=== PATIENT | male | born 1965 | race Caucasian/White ===

== ENCOUNTER 2017-09-13 09:20 | Emergency (ER) | payer OTHER ==
[~2017-09-13] VITALS: Ht 162.6 cm; Wt 95.0 kg
[2017-09-13 09:20] VITALS: BP 156/111; PULSE 67; RESP 18; TEMP 98.1; O2SAT 94
[2017-09-13 09:34] VITALS: BP 156/111; PULSE 69; RESP 18; O2SAT 98
--- NOTE | 2017-09-13 09:41 | PD ---
HPI Chief Complaint: Neuro Symptoms/ Deficits Time Seen by Provider: 09:23 Travel History International Travel<30 days: No Contact w/Intl Traveler<30days: No Traveled to known affect area: No History of Present Illness HPI This 52-year-old male says he noted some irritation of his right eye yesterday. He thought it might be something in the eye and it was tearing a lot. He slept okay last night and he woke up this morning and when he got up he noticed that when he tried to gargle the mouthwash would not stay in his mouth that came out the right side of his mouth. He then went to work but noticed some drooping of the right side of his face. He has not had any earache or headache. He has not had fever or chills. He has not had symptoms like this before. He did not notice any weakness of his arm or his legs. He lives locally and has not traveled. It was noted that his blood pressure was elevated. He has not had high blood pressure before but he has had a recent gain in weight. [facility] Past Medical History Medical History: Denies Significant Hx Past Surgical History AICD: No Joint Replacement: No Pacemaker: No Other Surgery: Yes (HERNIA SURGERY) Social History Alcohol Use: No Tobacco Use: No Substance Use: No Allergies-Medications (Allergen,Severity, Reaction): Coded Allergies: No Known Allergies (Unverified Adverse Reaction, Unknown, 09/13/17) Reported Meds & Prescriptions Reported Meds & Active Scripts Active No Active Prescriptions or Reported Medications Review of Systems General / Constitutional: No: Fever, Chills Eyes: Positive: Foreign Body Sensation, Tearing HENT: No: Headaches, Vertigo, Neck Pain Cardiovascular: No: Chest Pain or Discomfort, Palpitations Respiratory: No: Cough, Shortness of Breath Gastrointestinal: No: Vomiting, Diarrhea Genitourinary: No: Urgency, Frequency Neurologic: Positive: Focal Abnormalities, No: Weakness, Syncope Endocrine: No: Cold Intolerance Hematologic/Lymphatic: No: Easy Bruising Physical Exam Narrative GENERAL: Well-developed male SKIN: Focused skin assessment warm/dry. HEAD: Atraumatic. Normocephalic. EYES: Pupils equal and round. No scleral icterus. No injection or drainage. ENT: No nasal bleeding or discharge. Mucous membranes pink and moist. NECK: Trachea midline. No JVD. CARDIOVASCULAR: Regular rate and rhythm. No murmur appreciated. RESPIRATORY: No accessory muscle use. Clear to auscultation. Breath sounds equal bilaterally. GASTROINTESTINAL: Abdomen soft, non-tender, nondistended. Hepatic and splenic margins not palpable. MUSCULOSKELETAL: No obvious deformities. No clubbing. No cyanosis. No edema. NEUROLOGICAL: Awake and alert. Motor grossly within normal limits. Normal speech. There is drooping of the right side of the face including the forehead. Sensation is intact. He has weakness on attempted closure of his eyes on the right. There is flattening of the right nasolabial fold PSYCHIATRIC: Appropriate mood and affect; insight and judgment normal. Data Data Last Documented VS Vital Signs Date Time Temp Pulse Resp B/P (MAP) Pulse Ox O2 Delivery O2 Flow Rate FiO2 09/13/17 10:52 74 16 120/78 (92) 97 09/13/17 09:48 Room Air 09/13/17 09:20 98.1 Orders Orders Complete Blood Count With Diff (09/13/17 09:31) Basic Metabolic Panel (Bmp) (09/13/17 09:31) Mri Brain W&W/O Contrast (09/13/17 09:32) Gadodiamide Pf Inj (Omniscan Pf Inj) (09/13/17 11:15) Labs Laboratory Tests Test 09/13/17 09:25 White Blood Count 8.6 TH/MM3 Red Blood Count 5.50 MIL/MM3 Hemoglobin 16.2 GM/DL Hematocrit 48.1 % Mean Corpuscular Volume 87.5 FL Mean Corpuscular Hemoglobin 29.4 PG Mean Corpuscular Hemoglobin Concent 33.6 % Red Cell Distribution Width 13.0 % Platelet Count 236 TH/MM3 Mean Platelet Volume 9.7 FL Neutrophils (%) (Auto) 59.7 % Lymphocytes (%) (Auto) 24.7 % Monocytes (%) (Auto) 10.6 % Eosinophils (%) (Auto) 3.6 % Basophils (%) (Auto) 1.4 % Neutrophils # (Auto) 5.2 TH/MM3 Lymphocytes # (Auto) 2.1 TH/MM3 Monocytes # (Auto) 0.9 TH/MM3 Eosinophils # (Auto) 0.3 TH/MM3 Basophils # (Auto) 0.1 TH/MM3 CBC Comment DIFF FINAL Differential Comment Blood Urea Nitrogen 20 MG/DL Creatinine 0.95 MG/DL Random Glucose 114 MG/DL Calcium Level 8.6 MG/DL Sodium Level 140 MEQ/L Potassium Level 4.2 MEQ/L Chloride Level 105 MEQ/L Carbon Dioxide Level 28.0 MEQ/L Anion Gap 7 MEQ/L Estimat Glomerular Filtration Rate 84 ML/MIN [facility] Medical Decision Making Medical Screen Exam Complete: Yes Emergency Medical Condition: Yes Medical Record Reviewed: Yes Differential Diagnosis Differential includes Fonseca's palsy, CVA Narrative Course Laboratory work is unremarkable. An MRI was obtained and is negative for mass lesion or stroke. Diagnosis is Fonseca's palsy. He'll be placed on prednisone. Diagnosis Primary Impression: Fonseca's palsy Scripts Prednisone (Prednisone) 20 Mg Tab 20 MG PO DIRECTED, #24 TAB 0 Refills Take 60 MG daily x 4 days, then 40 MG x 4 days, then 20 MG daily x 4 days. Prov: Amrik Andres MD 09/13/17 Disposition: DISCHARGE HOME Condition: Stable Amrik Andres MD Sep 13, 2017 09:41
[2017-09-13 09:46] LABS: AUTOMATED NEUTROPHIL # 5.2 TH/MM3 (1.8-7.7); BASOPHIL # 0.1 TH/MM3 (0-0.2); BASOPHIL % 1.4 % (0.0-2.0); EOSINOPHIL # 0.3 TH/MM3 (0-0.4); EOSINOPHIL % 3.6 % (0.0-4.0); HEMATOCRIT 48.1 % (39.0-51.0); HEMO FLAGS DIFF FINAL; LYMPH % 24.7 % (9.0-44.0); LYMPHOCYTE # 2.1 TH/MM3 (1.0-4.8); MEAN CELL VOLUME 87.5 FL (80.0-100.0); MEAN CORPUSCULAR HEMOGLOBIN 29.4 PG (27.0-34.0); MEAN CORPUSCULAR HGB CONC 33.6 % (32.0-36.0); MONO % 10.6 % (0.0-8.0); NEUT % 59.7 % (16.0-70.0); PLATELET COUNT 236 TH/MM3 (150-450); WHITE BLOOD COUNT 8.6 TH/MM3 (4.0-11.0)
[2017-09-13 09:48] VITALS: BP 135/92; PULSE 78; RESP 18; O2SAT 96
[2017-09-13 09:57] LABS: POTASSIUM 4.2 MEQ/L (3.5-5.1)
[2017-09-13 10:52] VITALS: BP 120/78; PULSE 74; RESP 16; O2SAT 97
[2017-09-13] MEDS ORDERED: GADODIAMIDE PF 287 MG/ML 20 ML VIAL (for RAD MRI) IV PUSH ONE (11:15)
--- NOTE | 2017-09-13 11:58 | RADRPT ---
EXAM DATE/TIME: 09/13/2017 11:02 [place] COMPARISON: No previous studies available for comparison. INDICATIONS : CVA. Right facial numbness. Fonseca's palsy. CONTRAST: 18 cc Omniscan (gadodiamide) IV MEDICAL HISTORY : None. SURGICAL HISTORY : Inguinal hernia repair. ENCOUNTER: Initial ACUITY: 1 day PAIN SCORE: 0/10 LOCATION: head TECHNIQUE: Multiplanar, multisequence MRI of the brain was performed both prior to and following the administrat ion of paramagnetic contrast. FINDINGS: CEREBRUM: The ventricles are normal for age. No evidence of midline shift, mass lesion, hemorrhage or acute in farction. No extraaxial fluid collections are seen. The pituitary gland and suprasellar cistern are normal in configuration. WHITE MATTER: No significant signal abnormalities are seen in the white matter. POSTERIOR FOSSA: The cerebellum and brainstem are intact. The 4th ventricle is midline. The cerebellopontine angle is unremarkable. The cerebellar tonsils are normal in position. DIFFUSION IMAGING: No focal areas of restricted diffusion are seen. No evidence of acute infarction. EXTRACRANIAL: The visualized portions of the orbits and paranasal sinuses are unremarkable. POST-CONTRAST: No abnormal areas of parenchymal or dural enhancement. No evidence of blood-brain barrier breakdown. CONCLUSION: 1. No acute disease. 2. No mass or enhancing lesions. Jean Claude Starr MD on September 13, 2017 at 11:53 Board Certified Radiologist. This report was verified electronically.
[2017-09-13] MEDS ORDERED: PRED20 PO (12:04)
[2017-09-13] MEDS ORDERED: predniSONE 20 MG TAB PO ONE (12:15)
== END 2017-09-13 12:17 | disposition home or self-care (01) ==
LOC: PHED 09:20
DX: G51.0 Bell's palsy (principal)
CPT/HCPCS: 70553; 80048; 85025; 99285; A9579; J7512